=== PATIENT | female | born 2000 | race Hispanic/Latino ===

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

== ENCOUNTER 2022-06-01 03:39 | Emergency (ER) | payer OTHER ==
[~2022-06-01] VITALS: Ht 170.2 cm; Wt 72.6 kg
[~2022-06-01 03:39] MED LIST: ONDANSETRON ODT4 MG PO
[2022-06-01] MEDS: KETOROLAC TROMETHAMINE 30 MG/ML VIAL IV ONE (04:15)
[2022-06-01] MEDS: FAMOTIDINE 20 MG/2 ML VIAL IV ONE (04:15)
[2022-06-01] MEDS: SODIUM CHLORIDE 0.9% 1000ML 1,000 ML IV STA (04:15)
[2022-06-01] MEDS ORDERED: KETOROLAC TROMETHAMINE 30 MG/ML VIAL ONE (04:18)
[2022-06-01] MEDS ORDERED: SODIUM CHLORIDE 0.9% 1000ML 1,000 ML ONE (04:18)
[2022-06-01] MEDS ORDERED: FAMOTIDINE 20 MG/2 ML VIAL IV ONE (04:19)
[2022-06-01] MEDS ORDERED: IOPAMIDOL 370 MG/ML 100 ML INFUS..BTL INJ ONE (04:37)
[2022-06-01] MEDS ORDERED: MAGNESIUM CITR296 ML PO (05:26)
[2022-06-01] MEDS ORDERED: ACETAMINOPHEN500 MG PO (05:26)
== END 2022-06-01 05:39 | disposition home or self-care (01) ==
LOC: FSED 03:47
DX: R10.30 Lower abdominal pain, unspecified (principal); K59.00 Constipation, unspecified
CPT/HCPCS: 74177; 80053; 81003; 85025; 99284; J1885; J7030; Q9967

== ENCOUNTER 2022-12-31 21:50 | Emergency (ER) | payer OTHER ==
[~2022-12-31] VITALS: Ht 170.2 cm; Wt 71.2 kg
[~2022-12-31 21:50] MED LIST changes: +ACETAMINOPHEN500 MG PO; +CLEOCIN HCL300 MG PO; +MAGNESIUM CITR296 ML PO
[2022-12-31] MEDS ORDERED: IBUPROFEN 600 MG TAB ONE (22:16)
[2022-12-31] MEDS ORDERED: IBUPROFEN 600 MG TAB PO STA (22:26)
[2022-12-31] MEDS ORDERED: AMOXICILLIN500 MG PO (22:52)
[2022-12-31] MEDS ORDERED: IBUPROFEN600 MG PO (22:53)
[2022-12-31 23:20] VITALS: BP 121/72; PULSE 82; RESP 18; TEMP 99.1; O2SAT 98
[2023-01-01] MEDS ORDERED: IBUPROFEN 600 MG TAB ONE (01:46)
== END 2022-12-31 23:10 | disposition home or self-care (01) ==
LOC: FSED 21:53
DX: R05.9 Cough, unspecified (principal); J02.9 Acute pharyngitis, unspecified; Z20.89 Contact with and (suspected) exposure to other communicable diseases
CPT/HCPCS: 99282

== ENCOUNTER 2023-01-18 12:33 | Emergency (ER) | payer OTHER ==
[~2023-01-18] VITALS: Ht 170.2 cm; Wt 72.1 kg
[~2023-01-18 12:33] MED LIST changes: +AMOXICILLIN500 MG PO; +IBUPROFEN600 MG PO
[2023-01-18] MEDS ORDERED: ONDANSETRON HCL INJ 2MG/ML 2ML 2 MG/ML VIAL ONE (12:57)
[2023-01-18] MEDS ORDERED: SODIUM CHLORIDE 0.9% 1000ML 1,000 ML ONE (12:57)
[2023-01-18] MEDS ORDERED: FAMOTIDINE 20 MG/2 ML VIAL IV ONE (12:57)
[2023-01-18] MEDS ORDERED: FAMOTIDINE 20 MG/2 ML VIAL IV STA (13:03)
[2023-01-18] MEDS ORDERED: ONDANSETRON HCL INJ 2MG/ML 2ML 2 MG/ML VIAL IV STA (13:03)
[2023-01-18] MEDS ORDERED: SODIUM CHLORIDE 0.9% 1000ML 1,000 ML IV ONE (13:15)
[2023-01-18] MEDS ORDERED: DICYCLOMINE HCL 10 MG CAP ONE (13:37)
[2023-01-18] MEDS ORDERED: ONDANSETRON ODT4 MG PO (13:40)
[2023-01-18] MEDS ORDERED: FAMOTIDINE20 MG PO (13:42)
[2023-01-18] MEDS ORDERED: DICYCLOMINE HCL 20 MG TAB PO ONE ×2 (13:45)
[2023-01-18] MEDS ORDERED: LEVSIN-SL0.125 MG SL (14:01)
[2023-01-18 14:08] VITALS: O2SAT 100
== END 2023-01-18 14:08 | disposition home or self-care (01) ==
LOC: FSED 12:41
DX: A08.4 Viral intestinal infection, unspecified (principal); E86.0 Dehydration; R09.81 Nasal congestion; R05.9 Cough, unspecified; N92.0 Excessive and frequent menstruation with regular cycle; D64.9 Anemia, unspecified; Z79.899 Other long term (current) drug therapy
CPT/HCPCS: 80048; 80076; 81003; 81025; 85025; 96374; 96375; 99284; J2405; J7030

== ENCOUNTER 2024-03-03 00:44 | Emergency (ER) | payer OTHER ==
[~2024-03-03] VITALS: Ht 170.2 cm; Wt 73.5 kg
[~2024-03-03 00:44] MED LIST changes: +FAMOTIDINE20 MG PO; +LEVSIN-SL0.125 MG SL
[2024-03-03 00:52] VITALS: PULSE 68; RESP 16; TEMP 97.9; O2SAT 100
[2024-03-03] MEDS ORDERED: SODIUM CHLORIDE 0.9% 1000ML 1,000 ML ONE (01:19)
[2024-03-03] MEDS: SODIUM CHLORIDE 0.9% 1000ML 1,000 ML IV STA (01:38)
[2024-03-03] MEDS ORDERED: ONDANSETRON HCL 4 MG ORAL DISINTEGRATING TAB ONE (01:51)
[2024-03-03] MEDS: ONDANSETRON HCL 4 MG ORAL DISINTEGRATING TAB PO ONE (01:54)
== END 2024-03-03 02:30 | disposition home or self-care (01) ==
LOC: FSED 01:10
DX: O21.0 Mild hyperemesis gravidarum (principal); R19.7 Diarrhea, unspecified
CPT/HCPCS: 80053; 81003; 81025; 85025; 99283; J7030; Q0162